=== PATIENT | male | born 1980 | race Native Hawaiian/Other Pacific Islander ===

== ENCOUNTER 2019-10-28 08:36 | Emergency (ER) | payer OTHER ==
[~2019-10-28] VITALS: Ht 165.1 cm; Wt 77.1 kg
[2019-10-28 08:49] VITALS: TEMP 97.9
[2019-10-28 09:55] VITALS: BP 128/48
== END 2019-10-28 09:55 | disposition home or self-care (01) ==
LOC: ED 08:36
DX: L02.31 Cutaneous abscess of buttock (principal)
CPT/HCPCS: 87070; 87077; 87185; 87186; 87205; 99282